=== PATIENT | female | born 1970 | race Caucasian/White ===

== ENCOUNTER 2022-01-15 14:41 | Emergency (ER) | payer OTHER ==
[2022-01-15] MEDS ORDERED: Ondansetron 4 MG/2 ML SDV IVPUSH ONE (15:22)
[2022-01-15] MEDS ORDERED: HYDROmorphone 1 MG/ML Syringe IVPUSH ONE (15:22)
[2022-01-15] MEDS ORDERED: Ondansetron 4 MG Tab.DIS PO ONE (17:44)
[2022-02-07 14:21] LABS: CHLORIDE,CL 100 mmol/L (98-107); ESTIMATED GFR 78 mL/min (>=60); SODIUM,NA 136 mmol/L (136-145)
== END 2022-01-15 17:26 | disposition home or self-care (01) ==
LOC: DL.ED 14:41
DX: K80.20 Calculus of gallbladder without cholecystitis without obstruction (principal); Z20.822 Contact with and (suspected) exposure to COVID-19
CPT/HCPCS: 36415; 74176; 80053; 81001; 82140; 82150; 83605; 83690; 85025; 86140; 96374; 96375; 99284-25; A9270-GY; J1170; J2405; U0002